=== PATIENT | female | born 1995 | race Caucasian/White ===

== ENCOUNTER 2016-04-20 09:42 | Inpatient (IN) ==
[2016-04-20] MEDS ORDERED: Piperacillin/Tazobactam 3.375 GM in D5% in Water (Mini-Bag+) 100 ML IVPB ONE (09:57)
[2016-04-20] MEDS ORDERED: 0.9 % Sodium Chloride 1,000 ML IVC ONE (09:57)
[2016-04-20 10:18] LABS: Basophils % 0.3 %; Eosinophils % 0.3 %; Hematocrit 41.2 % (35.3-44.9); Hemoglobin 14.2 g/dL (11.5-15.4); Immature Granulocytes % 0.4 % (0-4); Lymphocytes # 1.4 K/mcL (0.6-4.6); Lymphocytes % 11.6 %; Mean Corpuscular HGB Conc 34.5 g/dL (31.6-35.5); Mean Corpuscular Hemoglobin 31.3 pg (28.0-33.3); Mean Corpuscular Volume 90.7 fL (83.0-100.0); Monocytes % 8.4 %; Neutrophils # 9.2 K/mcL (1.6-8.9); Platelet Count 200 K/mcL (140-400); Red Blood Count 4.54 M/mcL (3.82-4.97); Red Cell Distribution Width 13.2 % (11.5-14.5)
--- NOTE | 2016-04-20 10:20 | Emergency Department Note ---
START Narrative - START START: I examined this patient and my medical decision-making was reviewed with the POLITICAL THEORY PROFESSOR/PA/Advanced Practice Nurse/Resident Physician. I agree with the documented findings, disposition and treatment plan as described except to the extent set forth below. ED attending: Patient's emergency medicine resident Dr. MABRY. Please see copy of this note for H&P evaluation and management and ED disposition. We both had independent [id number] time in contact with this patient. Briefly: A 20-year-old female at 14 weeks gestation presents with difficulty swallowing and swelling in the right mandibular area. Was seen by dentist a few days ago and put on a Z-Jose due to an amoxicillin allergy. She said her symptoms progressing. She has no angioedema of the lips or face or urticaria. But she has some slight uvular deviation no muffled voice but she is has some mild trismus and swelling of the right mandibular angle and the submental area. There is no stridor. No pooling of secretions. She is vital signs are stable. Patient will get contrast CT of the face and neck, IV Zosyn lab work Tylenol IV fluids. Disposition pending.
[2016-04-20 10:29] LABS: BUN/Creatinine Ratio 10 (6-26); Blood Urea Nitrogen 6 mg/dL (7-20); Calcium 9.5 mg/dL (8.6-10.8); Carbon Dioxide 18 mEq/L (19-29); Chloride 105 mEq/L (98-109); Glucose 82 mg/dL (70-99); Osmolality,Calculated 281 (280-300); Potassium 3.7 mEq/L (3.5-4.5); Sodium 137 mEq/L (136-145); eGFR For African Americans > 60 (> 60); eGFR For Non-African Americans > 60 (> 60)
--- NOTE | 2016-04-20 11:58 | Emergency Department Note ---
Disposition Clinical Impression: Abscess Myositis Qualifiers: Myositis type: infective Myositis location: other site Qualified Code(s): M60.08 - Infective myositis, other site Disposition: Admitted As Inpatient Condition: Fair Referrals: NO,PCP [Primary Care Provider] - Forms: ED Satisfaction Letter Time of Disposition: 12:00 General Adult HPI - General Chief complaint: ED Dental/Oral Stated complaint: Face swelling/Chest Pain/Can't swallow Time Seen by Provider: 04/20/16 09:54 Source: patient Limitations: no limitations Nursing Notes Reviewed: Yes Vital Signs Reviewed: Yes - History of Present Illness HPI Narrative: Patient is a 20-year-old female who presents to [facility] ED with chief complaint of right-sided facial swelling. He states she gets started with a sore tooth on Thursday and she was referred to a dentist. She went to see her dentist on who placed her on Z-Jose. States the swelling has aggressive with gotten worse and now involves the right side of her jaw. Patient has had a fever at home. Denies any chest pain, difficulty breathing, abdominal pain. No problems with urination or bowel movements. She is at 14 weeks and follows with CATALYTIC CASE OPERATOR Dr. Sher. Onset (ago): day(s) Location: face, neck Radiation: non-radiation Pain Severity: severe Pain Scale: 9 Quality: aching Consistency: constant, Worsening Improves with: nothing Worsens with: nothing Associated symptoms: Reports: denies other symptoms Treatments Prior to Arrival: none - Related Data Previous Rx's Medication Instructions Recorded Vit/Iron Fumarate/FA 1 each PO DAILY #90 tablet 02/14/15 [ Tablet] Clindamycin [Cleocin] 300 mg PO Q6HR 7 Days 04/18/16 Allergies Allergy/AdvReac Type Severity Reaction Status Date / Time Amoxicillin Allergy Rash Verified 02/14/15 09:28 All systems ED: reviewed and negative except as stated. Past Medical History - Past Medical History Attestation: Yes The following information was validated with the patient. Source: patient Medical history: Reports: no medical history - Social History Smoking Status: Never smoker Smokeless Tobacco Status: No Alcohol use: Reports: none Drug use: Reports: marijuana Physical Exam - General Limitations: no limitations General appearance: alert - Head Head exam: atraumatic, normocephalic, normal inspection - Eye Eye exam: Present: normal appearance, PERRL, EOMI - ENT ENT exam: other (Right-sided mandibular and submandibular swelling) - Neck Neck exam: Present: normal inspection, full ROM, trachea midline - Chest Chest inspection: Present: normal inspection, symmetric chest wall rise - Respiratory Respiratory exam: Present: normal lung sounds bilaterally - Cardiovascular Cardiovascular exam: Present: normal rhythm, tachycardia - Abdominal Exam Abdominal exam: Present: soft, Non-Tender. Absent: tenderness, distention, guarding, rebound, rigidity - Extremities Exam Extremities exam: Present: normal inspection, full ROM. Absent: tenderness, pedal edema - Back Exam Back exam: Present: normal inspection, full ROM. Absent: tenderness - Neurological Exam Neurological exam: Present: alert, oriented X3 - Psychiatric Psychiatric exam: Present: normal affect, normal mood - Skin Skin exam: Present: warm, dry, intact, normal color Course Course Narrative: Patient seen and examined. Right-sided facial swelling. CT neck up to mid face ordered with IV contrast. We will shield the belly for the her . Basic labs ordered as well. IV Zosyn ordered. - Reevaluation(s) Reevaluation #1: I spoke with Dr. Mccray ENT who states he will be in to see the patient. Patient evaluated by Dr. Mccray he states he will take her to surgery and admit to ENT service. Time: 12:00 Vital Signs Temperature 98.1 F 04/20/16 09:45 Pulse Rate 105 04/20/16 09:45 Respiratory Rate 18 04/20/16 09:45 Blood Pressure 115/78 04/20/16 09:45 O2 Sat by Pulse Oximetry 100 04/20/16 09:45 Temperature 98.1 F 04/20/16 09:45 Pulse Rate 105 04/20/16 09:45 Respiratory Rate 18 04/20/16 09:45 Blood Pressure 115/78 04/20/16 09:45 O2 Sat by Pulse Oximetry 100 04/20/16 09:45 Oxygen Delivery Oxygen Delivery Room Air Medical Decision Making - Medical Records Medical records reviewed: Yes I reviewed the patient's medical records. - Lab Data Lab results reviewed: Yes I reviewed the patient's lab results. Result diagrams: 04/20/16 10:10 04/20/16 10:10 Lab Results 04/20/16 04/20/16 Range/Units 10:10 10:10 WBC 11.6 H (4.3-11.1) K/mcL RBC 4.54 (3.82-4.97) M/mcL Hgb 14.2 (11.5-15.4) g/dL Hct 41.2 (35.3-44.9) % MCV 90.7 (83.0-100.0) fL MCH 31.3 (28.0-33.3) pg MCHC 34.5 (31.6-35.5) g/dL RDW 13.2 (11.5-14.5) % Plt Count 200 (140-400) K/mcL MPV 10.0 (9.4-12.4) fL Immature Gran % 0.4 (0-4) % Seg Neutrophils % 79.0 % Lymphocytes % 11.6 % Monocytes % 8.4 % Eosinophils % 0.3 % Basophils % 0.3 % Neutrophils # 9.2 H (1.6-8.9) K/mcL Lymphocytes # 1.4 (0.6-4.6) K/mcL Monocytes # 1.0 (0.0-1.3) K/mcL Eosinophils # 0.0 (0.0-0.6) K/mcL Basophils # 0.0 (0.0-0.2) K/mcL Sodium 137 (136-145) mEq/L Potassium 3.7 (3.5-4.5) mEq/L Chloride 105 (98-109) mEq/L Carbon Dioxide 18 L (19-29) mEq/L BUN 6 L (7-20) mg/dL Creatinine 0.58 (0.57-1.11) mg/dL Est GFR ( Amer) > 60 (> 60) Est GFR (Non-Af Amer) > 60 (> 60) BUN/Creatinine Ratio 10 (6-26) Glucose 82 (70-99) mg/dL Calculated Osmolality 281 (280-300) Calcium 9.5 (8.6-10.8) mg/dL - Radiology Data Radiology results reviewed: Yes I reviewed the patient's radiology results.
--- NOTE | 2016-04-20 12:23 | ENT - History & Physical ---
Date of Encounter: 04/20/16 Time of Encounter: 12:00 Assessment and Plan (1) Dental abscess Current Visit: Yes Status: Acute The assessment and plan as outlined above was discussed with the patient and/or family members who expressed understanding and agreement. All questions were answered. White female with substantial dental abscess causing significant discomfort for incision and drainage in the operating room followed by antibiotic treatment and observation for at least 24 hours hours hostess informed that where admitting 14 week young adult to the hospital History of Present Illness HPI: Ms. Xiong is a 20 year old female This patient developed a right molar and mandibular problem on Thursday was seen in the dental clinic put on Zithromax worsened was seen here Thursday placed on clindamycin comes in today with worsening more pain CT that shows an obvious abscess with some significant surrounding cellulitis patient has no problem swallowing is not been having a lot of temperature elevation and incidentally she is 14 weeks Past Med Surg Social Fam HX - Past Medical History Medical history: no medical history - Social History Smoking Status: Never smoker Smokeless Tobacco Status: No Alcohol use: none Drug use: marijuana Medications and Allergies Vit/Iron Fumarate/FA [ Tablet] 1 each PO DAILY #90 tablet 02/14 [Rx] Clindamycin [Cleocin] 300 mg PO Q6HR 7 Days 04/18/16 [Rx] Allergies Amoxicillin Allergy (Verified 02/14/15 09:28) Rash ENT Exam Initial Vital Signs Temp Pulse Resp BP Pulse Ox 98.1 F 105 18 115/78 100 04/20/16 09:45 04/20/16 09:45 04/20/16 09:45 04/20/16 09:45 04/20/16 09:45 - General physical appearance well developed, well nourished, no distress, moderate pain - Eyes PERRL, normal ocular movement, icteric - ENT normal pinna, normal nares, normal mucosa, Other (Patient has swelling the right margin of the mandible to confirm this with CT confirmed abscess and cellulitis she has tenderness of the right mandibular molars to percussion and significant swelling of the oropharynx on the right consistent with cellulitis also please note patient has substantial trismus with limited opening of the mouth) - Neck no masses, trachea midline, no lymphadectomy - Respiratory normal expansion, normal respiratory effort, clear to percussion - Abdomen Abdomen: soft, non tender - Integumentary no rash - Neurologic CN 2-12 grossly intact, normal coordination, normal sensation - Musculoskeletal normal gait - Psychiatric oriented to time, oriented to person, oriented to place, speech is normal - Additional Findings White female with substantial trismus with swelling of the right angle of the mandible firm to touch with oropharyngeal swelling in the right side Results - Labs 04/20/16 10:10 04/20/16 10:10 Abnormal lab results WBC 11.6 K/mcL (4.3-11.1) H 04/20/16 10:10 Neutrophils # 9.2 K/mcL (1.6-8.9) H 04/20/16 10:10 Carbon Dioxide 18 mEq/L (19-29) L 04/20/16 10:10 BUN 6 mg/dL (7-20) L 04/20/16 10:10 Diabetes panel 04/20/16 Range/Units 10:10 Sodium 137 (136-145) mEq/L Potassium 3.7 (3.5-4.5) mEq/L Chloride 105 (98-109) mEq/L Carbon Dioxide 18 L (19-29) mEq/L BUN 6 L (7-20) mg/dL Creatinine 0.58 (0.57-1.11) mg/dL Glucose 82 (70-99) mg/dL Calcium 9.5 (8.6-10.8) mg/dL Calcium panel 04/20/16 Range/Units 10:10 Calcium 9.5 (8.6-10.8) mg/dL Pituitary panel 04/20/16 Range/Units 10:10 Sodium 137 (136-145) mEq/L Potassium 3.7 (3.5-4.5) mEq/L Chloride 105 (98-109) mEq/L Carbon Dioxide 18 L (19-29) mEq/L BUN 6 L (7-20) mg/dL Creatinine 0.58 (0.57-1.11) mg/dL Glucose 82 (70-99) mg/dL Calcium 9.5 (8.6-10.8) mg/dL Adrenal panel 04/20/16 Range/Units 10:10 Sodium 137 (136-145) mEq/L Potassium 3.7 (3.5-4.5) mEq/L Chloride 105 (98-109) mEq/L Carbon Dioxide 18 L (19-29) mEq/L BUN 6 L (7-20) mg/dL Creatinine 0.58 (0.57-1.11) mg/dL Glucose 82 (70-99) mg/dL Calcium 9.5 (8.6-10.8) mg/dL All other labs normal.
[2016-04-20] MEDS ORDERED: Ondansetron 4 MG/2 ML VIAL IVP ONE (13:46)
[2016-04-20] MEDS ORDERED: *HR* HYDROmorphone (PF) 1 MG/ML SYRINGE IVP ONE (13:46)
[2016-04-20] MEDS ORDERED: *HR* Propofol 200 MG/20 ML VIAL IVP ONE (15:15)
[2016-04-20] MEDS ORDERED: *HR* FentaNYL (PF) 100 MCG/2 ML VIAL ONE (15:15)
[2016-04-20] MEDS ORDERED: *HR* Succinylcholine 200 MG/10 ML VIAL IVP ONE (15:15)
[2016-04-20] MEDS ORDERED: Lidocaine -MPF 2% 2 ML VIAL ONE ×2 (15:15)
[2016-04-20] MEDS ORDERED: *HR* Midazolam HCl 5 MG/5 ML VIAL IVP ONE (15:15)
[2016-04-20] MEDS ORDERED: *HR* HYDROmorphone 2 MG/ML SYRINGE ONE (15:20)
[2016-04-20] MEDS ORDERED: HYDROcodone/Acet 5-217 mg/10mL 10 ML UDC PO SCH (16:43)
--- NOTE | 2016-04-20 17:15 | Anesthesia Evaluation PreOp ---
Date of Encounter: 04/20/16 Time of Encounter: 17:13 - Past History Planned Operation: I & D dental abcess Cardiac History: Denies any Significant Hx Pulmonary History: Denies Any Significant HX TIRE FABRIC IMPREGNATING RANGE TENDER History: Denies Any Significant HX Other Medical History: Denies Any Significant HX Anesthesia History: Past Anesthesia : Yes (14 week - Dr. Caceres [rv service technician] aware) Alcohol Use: none Drug use: marijuana Medications and Allergies Clindamycin [Cleocin] 300 mg PO Q6HR 7 Days 04/18/16 [Rx] Acetaminophen w/Cod 300-30 mg [Tylenol w/Codeine #3] 1 tab PO Q4HR PRN 04/20/16 [History] Vit/Iron Fumarate/FA [ Tablet] 1 tab PO DAILY 04/20/16 [History ] Allergies Amoxicillin Allergy (Verified 04/20/16 12:38) Hives - Meds/Allergy Pre-op Review Medications Reviewed: Yes Allergies Reviewed: Yes Beta Blockers on Current Med List: No Anesthesia Results - Labs 04/20/16 10:10 04/20/16 10:10 Laboratory Tests 04/20/16 10:10 Est GFR (Non-Af Amer) > 60 Laboratory Results Impressions Soft Tissue Neck CT 04/20/16 09:55 IMPRESSION: 1. There is an abscess noted along the lingual margin of the posterior right mandibular body measuring 1.9 x 0.4 cm. There is marked enlargement and edema in the right medial pterygoid and masseter muscles, compatible with an associated myositis. There is also marked induration in the fat in the right submandibular, right parapharyngeal and assistant property manager spaces, likely infectious/inflammatory. 2. There is an enlarged right submandibular lymph node, presumably reactive. D/ / 04/20/2016 10:53:39 Marques Shebly MD / noemi Interpreting Provider: Marques Shelby MD Anesthesia Exam Vital Signs Temp Pulse Resp BP Pulse Ox 04/20/16 14:42 98.1 F 71 16 124/79 100 04/20/16 14:04 14 115/82 04/20/16 09:45 98.1 F 105 18 115/78 100 Intake and Output 04/20/16 04/20/16 04/20/16 07:59 15:59 23:59 Output Total 0 / 0 Balance 0 / 0 Output: Urine 0 / 0 Other: Weight 52.163 kg Patient Weight 04/20/16 23:59 Weight 52.163 kg Height: 5'4" Weight: 114# BMI = 19 NPO (# of Hours): 0700 Applesauce - HEENT Pupil (Motor): Pupils equal, EOMI Mallampati: II Teeth: Normal Oral Opening: Greater than 3 - TIRE FABRIC IMPREGNATING RANGE TENDER LOC: Oriented TIRE FABRIC IMPREGNATING RANGE TENDER Motor: Normal RUE, Normal LUE, Normal RLE, Normal LLE, Normal Face TIRE FABRIC IMPREGNATING RANGE TENDER Sensory: Normal: RUE, LUE, RLE, LLE, Face - Cardiac Rhythm: Regular Murmur: None JVD: No - Pulmonary Breath Sounds: bilateral Clear Respiratory Effort: Symmetrical Anesthesia Assess/Plan ASA Score: 2, E Modified Maikel Scale for Level of Consciousness: Cooperative, oriented, and tranquil Anesthetic Plan: General Monitoring Plan: Standard Monitors Recovery Plan: PACU Anes Supervising Prov Stmt: Pt seen/evaluated, R&B Discussed, questions answered and consent obtained. David Lucero MD
[2016-04-20] MEDS ORDERED: Acetaminophen IV 1,000 MG/100 ML INFUS..BTL ONE (17:24)
[2016-04-20] MEDS ORDERED: Famotidine 20 MG/2 ML VIAL ONE (17:24)
[2016-04-20] MEDS ORDERED: Metoclopramide 10 MG/2 ML VIAL ONE (17:24)
[2016-04-20] MEDS ORDERED: Dexamethasone 4 MG/ML VIAL ONE (17:54)
[2016-04-20] MEDS ORDERED: Ondansetron 4 MG/2 ML VIAL ONE (17:55)
--- NOTE | 2016-04-20 18:23 | Operative Note ---
Date of procedure: 04/20/16 Pre-op diagnosis: Right dental abscess Post-op diagnosis: same Procedure: The patient was given a general anesthetic via an LMA followed by prepping and draping of the right submandibular area in the standard fashion for an incision and drainage followed by placement of a needle along the lingual surface of the mandible into an abscess cavity draining a few cc followed by a knife blade which was cut down into the lingual surface of the mandible into the abscess cavity there was no further drainage A Jennifer drain was applied into the wound and it was sutured ointment was applied to the wound and a dressing Implants: Parrish drain Complications: None Anesthesia: GETA Surgeon: Boni Mccray Condition: stable Disposition: floor Procedure in Detail: As noted above patient was given a anesthetic via LMA followed by prepping and draping of the face in a standard fashion the use submandibular area was palpated and the needle was placed along the lingual surface of the mandible into the abscess cavity with withdrawal of a few cc of mucopurulent material followed by an incision made with the knife into the same cavity placement of a drain and the patient had a bacitracin ointment applied to the wound and a dressing the patient was awakened in good condition there were no intraoperative postoperative or anesthetic complications
--- NOTE | 2016-04-20 18:53 | Anesthesia Evaluation Post Op ---
Date of Encounter: 04/20/16 Time of Encounter: 18:52 - Vital Signs Vital Signs: Vital Signs/O2 Sat/Glucose, Most Current Temp Pulse Resp BP Pulse Ox 04/20/16 18:40 91 16 119/77 100 04/20/16 18:30 106 16 117/89 99 04/20/16 18:20 97.8 F 78 14 100/66 99 - Lungs Lungs: Clear Ascult./Percussion - Airway Airway: Non-obstructed - Cardiovascular Regular Rate - Mental Status Mental Status: Alert & Oriented, Answers Appropriately - Pain Pain Scale: 1 Pain Scale used: Numeric (1 - 10) - Nausea Vomiting Nausea Vomiting: Not Present - Hydration Hydration: Ice chips, Has not voided - Discharge PostOp Status: Transfer Patient to floor Anes Supervising Prov Stmt: Pt seen/evaluated, VSS and pt has met criteria for discharge to floor. - MD Jazmine
[2016-04-20] MEDS: Ampicillin/Sulbactam 1,500 MG in 0.9 % Sodium Chloride Mini Bag 100 ML IVPB SCH (19:38)
[2016-04-20] MEDS: Ringers Solution, Lactated 1,000 ML IVC SCH (21:47)
[2016-04-20] MEDS: HYDROcodone/Acet 5-217 mg/10mL 10 ML UDC PO PRN (22:39)
[2016-04-21] MEDS: Ampicillin/Sulbactam 1,500 MG in 0.9 % Sodium Chloride Mini Bag 100 ML IVPB SCH ×3 (00:10→17:00)
[2016-04-21] MEDS: HYDROcodone/Acet 5-217 mg/10mL 10 ML UDC PO PRN ×3 (04:19→13:36)
[2016-04-21] MEDS: Ringers Solution, Lactated 1,000 ML IVC SCH ×3 (05:26→17:02)
[2016-04-21] MEDS ORDERED: Dexamethasone 10 MG/ML VIAL IVP SCH (09:00)
[2016-04-21] MEDS ORDERED: Neosporin OINT 15 GM TUBE TP SCH (09:15)
[2016-04-21 15:24] VITALS: BP 107/66
--- NOTE | 2016-04-21 16:32 | Discharge Summary ---
Date of Encounter: 04/21/16 Time of Encounter: 12:45 - Discharge Diagnosis (1) at early stage Priority: Secondary Status: Acute Comments: Patient is currently at 14 weeks during current . (2) Dental abscess Priority: Primary Status: Acute Comments: Patient with abscess of mandibular molars on the right side. I did recently take over care for this patient that had incision and drainage transcervically and was RD placed on IV Unasyn as well as steroid IV upon taking over care. Although incision and drainage has been performed of large dental abscess by transcervical incision by another ENT at this facility twos was not pulled at the time of I&D and appears that the source of this infection is from the dentition. There is no oral maxillofacial surgery present at this hospital so transfer was deemed necessary for further intervention and treatment of patient' s dental abscess especially considering patient's status and concern for prolonged antibiotics or steroid treatment. The transfer center at [facility] was contacted for further evaluation and treatment of this patient for her dental abscess which is complicated by her being in her 14th week of . - Discharge Medications Home Medications: Clindamycin [Cleocin] 300 mg PO Q6HR 7 Days 04/18/16 [Rx] Acetaminophen w/Cod 300-30 mg [Tylenol w/Codeine #3] 1 tab PO Q4HR PRN 04/20/16 [History] Vit/Iron Fumarate/FA [ Tablet] 1 tab PO DAILY 04/20/16 [History ] Allergies/Adverse Reactions: Allergies Amoxicillin Allergy (Verified 04/20/16 12:38) Hives Date of admission: 04/21/16 13:30 Primary care physician: PCP NO Consults: Obstetrics Discharging clinician: Deana Manzano Anticipated date of discharge: 04/21/16 - Patient Status Disposition: Transfer Critical Access Hosp Condition: Fair Functional capacity at discharge: independent ambulation Overall status at discharge: patient is not back to baseline - Discharge Instructions Follow Up With: NO,PCP [Primary Care Provider] - Additional Instructions: Further care per accepting physician at [facility]. - Diet and Activity Activity: increase activity as tolerated Diet: other (soft diet) - Hospital Course Hospital course: Ms. Xiong is a 20 year old female who was admitted secondary to severe dental abscess in the right mandibular area. Patient with significant abscess extending in the cervical region level II. Patient was seen and admitted by Dr. Mccray who subsequently brought her to the operating room for incision and drainage of this mandibular abscess. Transcervical approach was taken. No teeth were extracted or manipulated. Patient was subsequently admitted following the procedure that went without any complication that was apparent. Patient was 14 weeks on admission and obstetrics was counseled for evaluation and ultrasound was obtained on postop day #1. Patient was placed on IV antibiotics but on clinical examination patient had significant purulence emanating from around the mandibular molars on the right side. Due to patient's status as well as state of her teeth and lack of infectious disease or on here the hospital it was deemed appropriate to transfer patient to a larger facility where she could not obtain a care that was required. This was discussed with the patient and decision was made to transfer to [facility]. [facility] transferred to Center was contacted who accepted the transfer. Further care per accepting physician as she is to be accepted to the hospitalist service with needed subspecialties obtaining consult. - Time Spent with Patient Total time spent providing and/or coordinating discharge services: ENT Exam Initial Vital Signs Temp Pulse Resp BP Pulse Ox 98.1 F 105 18 115/78 100 04/20/16 09:45 04/20/16 09:45 04/20/16 09:45 04/20/16 09:45 04/20/16 09:45 - General physical appearance well developed, well nourished, severe pain - Eyes PERRL, normal ocular movement - ENT normal pinna, normal nares, mucosal exudate, CN 2-12 grossly intact, Other ( trismus to 2cm, Tongue is mobile and midline, floor of mouth is soft, tongue is not raised, inflammation of gingiva surrounding teeth #29, 30 ,31 with pain and expression of purlence upon palpation of the gingiva. oropharynx patent ) - Neck trachea midline, other (significant induration of the right neck, level II, [place] in place right neck with some drainage) - Respiratory normal expansion, normal respiratory effort - Abdomen Abdomen: soft, non tender - Neurologic CN 2-12 grossly intact, normal coordination, normal sensation - Psychiatric oriented to time, oriented to person, oriented to place - VTE Documentation of Mechanical Device: Graduated compression elastic hosiery
== END 2016-04-21 18:29 | disposition critical access hospital (66) | DRG 951 ==
LOC: 3ANU 09:42 → EMEROO 09:42 → 3ANU 14:05
PROVIDERS: ADMIT Otolaryngology Facial Plastic Surgery; ATTEND Otolaryngology